=== PATIENT | male | born 1970 | race Hispanic/Latino ===

== ENCOUNTER 2016-12-24 11:32 | Emergency (ER) | payer MEDICAID, OTHER ==
[2016-12-24 11:32] VITALS: BMI 29.9
[2016-12-24 11:53] VITALS: TEMP 99.2; O2SAT 98
[2016-12-24] MEDS ORDERED: Sodium Chloride 0.9% 1,000 ML IV STA (12:13)
--- NOTE | 2016-12-24 12:28 | ED PDOC ---
Arrival/HPI - General Chief Complaint: Back Pain Time Seen by Provider: 12/24/16 11:55 Historian: Patient - History of Present Illness Narrative History of Present Illness (Text): 12/24/16 11:55 Deangelo Ochoa is a 46 year old male who presents to the emergency department complaining of right lower flank pain since yesterday. pt reports urianry urgency. Patient last normally urinated early this morning. Patient has no other complaints at this time. no fevers, n/v/d, or other complaitns. no gross hematuria. Time/Duration: 24 hours Symptom Onset: Gradual Symptom Course: Unchanged Severity Level: Mild Activities at Onset: Light Context: Home Past Medical History - Provider Review Nursing Documentation Reviewed: Yes - Infectious Disease Hx of Infectious Diseases: None - Tetanus Immunization Tetanus Immunization: Unknown - Past Medical History Past Medical History: Non-Contributing - Psychiatric Hx Depression: No Hx Emotional Abuse: No Hx Physical Abuse: No Hx Substance Use: No - Past Surgical History Past Surgical History: Non-Contributing - Suicidal Assessment Feels Threatened In Home Enviroment: No Family/Social History - Physician Review Nursing Documentation Reviewed: Yes Family/Social History: No Known Family HX Smoking Status: Never Smoked Hx Alcohol Use: Yes Hx Substance Use: No Hx Substance Use Treatment: No Allergies/Home Meds Allergies/Adverse Reactions: Allergies No Known Allergies Allergy (Verified 09/14/15 11:26) Review of Systems - Physician Review All systems were reviewed & negative as marked: Yes - Review of Systems Constitutional: absent: Fatigue Eyes: absent: Vision Changes Respiratory: absent: SOB, Cough Cardiovascular: absent: Chest Pain Gastrointestinal: absent: Abdominal Pain Genitourinary Male: absent: Dysuria Musculoskeletal: Back Pain (right sided lower flank pain) Skin: absent: Rash Neurological: absent: Headache Endocrine: absent: Diaphoresis Hemo/Lymphatic: absent: Adenopathy Psychiatric: absent: Anxiety Physical Exam Vital Signs Reviewed: Yes Vital Signs Temp Pulse Resp BP Pulse Ox 12/24/16 14:09 61 18 138/73 98 12/24/16 11:52 99.2 F 57 L 16 148/86 98 Temperature: Afebrile Blood Pressure: Normal Pulse: Bradycardic Respiratory Rate: Normal Appearance: Positive for: Well-Appearing, Non-Toxic, Comfortable Pain Distress: None Mental Status: Positive for: Alert and Oriented X 3 - Systems Exam Head: Present: Atraumatic, Normocephalic Pupils: Present: PERRL Extroacular Muscles: Present: EOMI Conjunctiva: Present: Normal Mouth: Present: Moist Mucous Membranes Neck: Present: Normal Range of Motion Respiratory/Chest: Present: Clear to Auscultation, Good Air Exchange. No: Respiratory Distress, Accessory Muscle Use Cardiovascular: Present: Regular Rate and Rhythm, Normal S1, S2. No: Murmurs Abdomen: Present: Normal Bowel Sounds. No: Tenderness, Distention, Peritoneal Signs Back: Present: Other (mild right flank tenderness) Upper Extremity: Present: Normal Inspection. No: Cyanosis, Edema Lower Extremity: Present: Normal Inspection. No: Edema Neurological: Present: GCS=15, CN II-XII Intact, Speech Normal Skin: Present: Warm, Dry, Normal Color. No: Rashes Psychiatric: Present: Alert, Oriented x 3, Normal Insight, Normal Concentration Medical Decision Making ED Course and Treatment: 12/24/16 11:55 Impression: 46 year old male complaining of right lower flank pain since yesterday and urinary frequency. bedside us shows not show acute urinary retention. Differential Diagnosis included but are not limited to: ro renal colic vs uti/pyelo Plan: -- Abdomen and Pelvis CT w/o PO contrast -- Urinalysis -- Labs -- Toradol and IV Fluids -- Reassess and disposition Prior Visits: Notes and results from previous visits were reviewed. Patient last seen in the ED on 09/14/15 for left hand abrasion and right knee pain s/p twisting right knee the day before arrival. Patient was discharged home. Progress Notes: 12/24/16 13:47 pt reassesed. pain improved ct shows 3 mm stone. no e/o of infection. pain improved. advise pt to see outpt urologist. return precautions advised. 12/24/16 15:33 - Lab Interpretations Lab Results: 12/24/16 12:20 12/24/16 12:20 Lab Results 12/24/16 12:20: Sodium 142, Potassium 3.5 L, Chloride 101, Carbon Dioxide 29, Anion Gap 16, BUN 13, Creatinine 1.1, Est GFR ( Amer) > 60, Est GFR (Non- Af Amer) > 60, Random Glucose 95, Calcium 9.9, Total Bilirubin 0.8, AST 25, ALT 25, Alkaline Phosphatase 64, Total Protein 7.7, Albumin 4.2, Globulin 3.4, Albumin/Globulin Ratio 1.2, Lipase 47 12/24/16 12:20: PT 11.4, INR 1.06, APTT 24.7 12/24/16 12:20: WBC 11.3 H, RBC 4.75, Hgb 12.5 L, Hct 37.6 L, MCV 79.2 L, MCH 26.3, MCHC 33.2, RDW 15.2 H, Plt Count 398, MPV 8.4, Gran % 85.4 H, Lymph % ( Auto) 9.4 L, [place] % (Auto) 4.9, Eos % (Auto) 0.2 L, Baso % (Auto) 0.1, Gran # 9.67 H, Lymph # 1.1 L, [place] # 0.6, Eos # 0.0, Baso # 0.01 12/24/16 12:00: Urine Color Yellow, Urine Appearance Cloudy, Urine pH 6.0, Ur Specific [place] >= 1.030, Urine Protein 100 H, Urine Glucose (UA) Negative, Urine Ketones Trace H, Urine Blood Large H, Urine Nitrate Negative, Urine Bilirubin Negative, Urine Urobilinogen 1.0 H, Ur Leukocyte Esterase Negative, Urine RBC 5 - 10, Urine WBC 2 - 5, Ur Epithelial Cells 4 - 5, Calcium Oxalate Crystal Mod, Amorphous Sediment Few, Urine Bacteria Mod I have reviewed the lab results: Yes - RAD Interpretation Radiology Orders: 12/24/16 12:13 ABD & PELVIS W/O PO OR IV CONT [CT] Stat - Medication Orders Current Medication Orders: Discontinued Medications Sodium Chloride (Sodium Chloride 0.9%) 1,000 mls @ 1,000 mls/hr IV .Q1H STA Stop: 12/24/16 13:12 Last Admin: 12/24/16 12:29 Dose: 1,000 mls/hr Ketorolac Tromethamine (Toradol) 30 mg IVP STAT STA Stop: 12/24/16 12:14 Last Admin: 12/24/16 12:29 Dose: 30 mg Ondansetron HCl (Zofran Inj) Confirm Administered Dose 4 mg .ROUTE .STK-MED ONE Stop: 12/24/16 12:40 Last Admin: 12/24/16 12:41 Dose: 4 mg - Scribe Statement The provider has reviewed the documentation as recorded by the Qingibe Mercedes Escalera Provider Scribe Attestation: All medical record entries made by the Scribe were at my direction and personally dictated by me. I have reviewed the chart and agree that the record accurately reflects my personal performance of the history, physical exam, medical decision making, and the department course for this patient. I have also personally directed, reviewed, and agree with the discharge instructions and disposition. Disposition/Present on Arrival - Present on Arrival Any Indicators Present on Arrival: No History of DVT/PE: No History of Uncontrolled Diabetes: No Urinary Catheter: No History of Decub. Ulcer: No History Surgical Site Infection Following: None - Disposition Have Diagnosis and Disposition been Completed?: Yes Diagnosis: Kidney stone Disposition: HOME/ ROUTINE Disposition Time: 13:48 Condition: STABLE Discharge Instructions (ExitCare): Kidney Stones (ED) Additional Instructions: please follow up with urologist. return to emergency room with worsening symptoms or concerns. Prescriptions: Ibuprofen [Motrin Tab] 600 mg PO Q8 PRN #20 tab PRN Reason: Pain, Mild (1-3) oxyCODONE/Acetaminophen [Percocet 5/325 mg Tab] 1 ea PO Q6 PRN #10 tab PRN Reason: Pain, Severe (8-10) Tamsulosin [Flomax] 0.4 mg PO DAILY #10 cap Referrals: PCP,NO [Primary Care Provider] - Follow up with primary Barrett Rubio MD [Staff Provider] - Follow up with primary Forms: [employer] (Persian)
[2016-12-24 12:32] LABS: BASO # 0.01 K/mm3 (0.0-2.0); BASO % 0.1 % (0.0-3.0); EOS % 0.2 % (1.5-5.0); GRAN # 9.67 (1.4-6.5); GRAN % 85.4 % (50.0-68.0); HEMOGLOBIN 12.5 gm/dL (14.0-18.0); LYMPH # 1.1 (1.2-3.4); LYMPH % 9.4 % (22.0-35.0); MEAN CELL VOLUME 79.2 fL (80.0-105.0); MEAN CORPUSCULAR HEMOGLOBIN 26.3 pg (25.0-35.0); MEAN CORPUSCULAR HGB CONC 33.2 g/dl (31.0-37.0); MEAN PLATELET VOLUME 8.4 fl (7.0-11.0); MONO # 0.6 (0.1-0.6); MONO % 4.9 % (1.0-6.0); PLATELET COUNT 398 10^3/uL (120.0-450.0); RBC 4.75 10^6/uL (3.5-6.1); RED CELL DISTRIBUTION WIDTH 15.2 % (11.5-14.5); WHITE BLOOD COUNT 11.3 10^3/ul (4.5-11.0)
[2016-12-24 12:32] LABS: URINE BILIRUBIN NEGATIVE (NEGATIVE); URINE BLOOD LARGE (NEGATIVE); URINE GLUCOSE (UA) NEGATIVE (NEGATIVE); URINE LEUKOCYTE ESTERASE NEGATIVE Leu/uL (NEGATIVE); URINE NITRATE NEGATIVE (NEGATIVE); URINE PROTEIN 100 mg/dL (<30 mg/dL)
[2016-12-24 12:35] LABS: URINE APPEARANCE CLOUDY (CLEAR); URINE COLOR YELLOW (YELLOW)
[2016-12-24 12:41] LABS: ALB/GLOB RATIO 1.2 (1.1-1.8); ALBUMIN 4.2 g/dL (3.0-4.8); ALT/SGPT 25 U/L (7-56); AST/SGOT 25 U/L (15-59); BLOOD UREA NITROGEN 13 mg/dL (7-21); CALCIUM 9.9 mg/dL (8.4-10.5); GFR AFRICAN-AMERICAN > 60; GFR NON-AFRICAN AMERICAN > 60; LIPASE 47 U/L (23-300)
[2016-12-24 12:42] LABS: INR 1.06 (0.93-1.08); PARTIAL THROMBOPLASTIN TIME 24.7 Seconds (23.7-30.8); PROTHROMBIN TIME 11.4 Seconds (9.9-11.8)
[2016-12-24 12:54] LABS: URINE CALCIUM OXALATE CRYSTALS MOD /hpf
[2016-12-24 12:55] LABS: URINE AMORPHOUS SEDIMENT FEW; URINE BACTERIA MOD (NEG)
--- NOTE | 2016-12-24 13:43 | CT ---
PROCEDURE: CT Abdomen and Pelvis without intravenous contrast HISTORY: Right flank pain COMPARISON: None. TECHNIQUE: CT scan of the abdomen and pelvis was performed without administration of intravenous contrast. Oral contrast was not administered. Coronal and sagittal reformatted images were obtained. Radiation dose: Total exam DLP = 430.38 mGy-cm. This CT exam was performed using one or more of the following dose reduction techniques: Automated exposure control, adjustment of the mA and/or kV according to patient size, and/or use of iterative reconstruction technique. FINDINGS: LOWER THORAX: The lung bases are clear. LIVER: The liver is normal in size. No gross lesion or ductal dilatation. GALLBLADDER AND BILE DUCTS: There are no calcified gallstones. PANCREAS: The pancreas is normal in size. No gross lesion or ductal dilatation. SPLEEN: The spleen is normal in size. ADRENALS: Both adrenal glands are normal in size without discrete nodule. KIDNEYS AND URETERS: There is a 3 mm obstructing stone at the right UV junction with resultant mild diffuse dilatation of the right ureteral, mild hydronephrosis and right perinephric fat stranding. There are small nonobstructing stones in both kidneys. There is no left hydronephrosis or obstructive uropathy. VASCULATURE: No aortic aneurysm. BOWEL: The small bowel loops are normal in caliber. There is large amount of stool scattered throughout the colon. There is no bowel dilatation or obstruction. APPENDIX: No inflammatory changes in the right lower quadrant, the appendix is not distinctly identified. PERITONEUM: No free fluid. No free air. LYMPH NODES: No enlarged lymph nodes. BLADDER: Partially decompressed. REPRODUCTIVE: Unremarkable. BONES: No acute fracture. OTHER FINDINGS: There are bilateral small fat containing inguinal hernias. There is a moderate sliding hiatal hernia. IMPRESSION: 1. Mild right obstructive uropathy resulting from a 3 mm stone at the right UV junction. 2. Small nonobstructing stones in both kidneys. 3. Constipation. No evidence of bowel obstruction.
[2016-12-24 14:10] VITALS: BP 138/73; PULSE 61; RESP 18
== END 2016-12-24 14:10 | disposition home or self-care (01) ==
LOC: ED 11:32
DX: N20.0 Calculus of kidney (principal)
CPT/HCPCS: 74176; 80053; 81001; 83690; 85025; 85610; 85730; 96374; 99283; J1885; J2405; J7040

== ENCOUNTER 2017-09-27 09:20 | Emergency (ER) | payer MEDICAID ==
[2017-09-27 09:23] VITALS: BMI 29.9
[2017-09-27 09:34] VITALS: TEMP 99
[2017-09-27] MEDS ORDERED: Phenylephrine for priapism 0.1 mg/mL Syringe IN-CAVERNO STA ×2 (09:49→10:08)
--- NOTE | 2017-09-27 09:50 | ED PDOC ---
Arrival/HPI - General Chief Complaint: Male Genitourinary Time Seen by Provider: 09/27/17 09:31 Historian: Patient - History of Present Illness Narrative History of Present Illness (Text): 09/27/17 09:46 47yo male with PMHx of Insomnia present with complaint of persistent erection since yesterday morning. He states erection started after taking unknown medication for insomnia. States it was given at [facility] few days ago. He denies pain, but states it feels uncomfortable when walking. He denies penile discharge , urinary symptoms, any other complaint. Past Medical History - Provider Review Nursing Documentation Reviewed: Yes - Infectious Disease Hx of Infectious Diseases: None - Tetanus Immunization Tetanus Immunization: Unknown - Past Medical History Past Medical History: Non-Contributing - Cardiac Hx Hypertension: No - Pulmonary Hx Tuberculosis: No - Neurological Hx Seizures: No - Hematological/Oncological Hx Cancer: No - Musculoskeletal/Rheumatological Hx Falls: No - Genitourinary/Gynecological Hx Sexually Transmitted Diseases: No - Psychiatric Hx Psychophysiologic Disorder: Yes Hx Depression: Yes Hx Substance Use: Yes (PERCOCET) - Past Surgical History Past Surgical History: Non-Contributing - Anesthesia Hx Anesthesia: No - Suicidal Assessment Feels Threatened In Home Enviroment: No Family/Social History - Physician Review Nursing Documentation Reviewed: Yes Family/Social History: Unknown Family HX Smoking Status: Never Smoked Hx Alcohol Use: Yes (Beer) Frequency of alcohol use: Daily Hx Substance Use: Yes (PERCOCET) Substance used: Percocet Hx Substance Use Treatment: No Allergies/Home Meds Allergies/Adverse Reactions: Allergies No Known Allergies Allergy (Verified 09/27/17 09:28) Home Medications: Home Meds Medication Instructions Recorded Confirmed Unobtainable 09/27/17 09/27/17 Review of Systems - Physician Review All systems were reviewed & negative as marked: Yes - Review of Systems Constitutional: Normal Eyes: Normal ENT: Normal Respiratory: Normal Cardiovascular: Normal Gastrointestinal: Normal Genitourinary Male: Other (Penile erection) Musculoskeletal: Normal Skin: Normal Neurological: Normal Endocrine: Normal Hemo/Lymphatic: Normal Psychiatric: Normal Physical Exam Vital Signs Reviewed: Yes Vital Signs Temp Pulse Resp BP Pulse Ox 09/27/17 11:14 74 17 113/76 99 09/27/17 09:29 99.0 F 101 H 16 101/65 96 Temperature: Afebrile Blood Pressure: Normal Pulse: Regular Respiratory Rate: Normal Appearance: Positive for: Well-Appearing, Non-Toxic, Comfortable Pain Distress: None Mental Status: Positive for: Alert and Oriented X 3 - Systems Exam Head: Present: Atraumatic, Normocephalic Pupils: Present: PERRL Extroacular Muscles: Present: EOMI Conjunctiva: Present: Normal Mouth: Present: Moist Mucous Membranes Neck: Present: Normal Range of Motion Respiratory/Chest: Present: Clear to Auscultation, Good Air Exchange. No: Respiratory Distress, Accessory Muscle Use Cardiovascular: Present: Regular Rate and Rhythm, Normal S1, S2. No: Murmurs Abdomen: No: Tenderness, Distention, Peritoneal Signs Genitourinary Male: Present: Other (Erected penis noted) Back: Present: Normal Inspection Upper Extremity: Present: Normal Inspection. No: Cyanosis, Edema Lower Extremity: Present: Normal Inspection. No: Edema Neurological: Present: GCS=15, CN II-XII Intact, Speech Normal Skin: Present: Warm, Dry, Normal Color. No: Rashes Psychiatric: Present: Alert, Oriented x 3, Normal Insight, Normal Concentration Medical Decision Making ED Course and Treatment: 09/27/17 10:30 47yo male in ED for present erection over 24hrs Case was DW Dr. Leslie acevedo. He spoke with Dr. Thompson and recommended he used phenylepeneprhine to relieved erection and request a call back. PT remain comfortable in ED. 09/27/17 12:30 pt was injected with 2doses of 0.1mg of phenylepinephrine without resolution. Dr. Thompson spoke with Dr. Acevedo and he request that pt be DC to come to his office. Dr. Thompson discussed this with the patient and he agreed with the plan to follow up with Dr. Acevedo's office as soon as he leaves the ED. He was comfortbale and in no distress. No sign of ischemia was noted in ED. - Medication Orders Current Medication Orders: Discontinued Medications Phenylephrine HCl (Phenylephrine For Priapism) 0.1 mg IN-CAVER[place] STAT STA Stop: 09/27/17 09:50 Phenylephrine HCl (Phenylephrine For Priapism) 0.1 mg IN-[place]VER[place] STAT STA Stop: 09/27/17 10:09 Disposition/Present on Arrival - Present on Arrival Any Indicators Present on Arrival: No History of DVT/PE: No History of Uncontrolled Diabetes: No Urinary Catheter: No History of Decub. Ulcer: No History Surgical Site Infection Following: None - Disposition Have Diagnosis and Disposition been Completed?: Yes Diagnosis: Priapism Disposition: HOME/ ROUTINE Disposition Time: 12:30 Patient Plan: Discharge Patient Problems: Current Active Problems Problem Status Onset Priapism Acute Condition: STABLE Discharge Instructions (ExitCare): Priapism Additional Instructions: Follow up with Urologist, Dr. Leslie Acevedo now Return to ED for persistent symptom Referrals: Leslie Acevedo MD [Staff Provider] - Follow up with primary Forms: [employer] (North Korean)
[2017-09-27 11:16] VITALS: RESP 17
[2017-09-27 14:31] VITALS: BP 115/80; PULSE 70; O2SAT 100
== END 2017-09-27 12:45 | disposition home or self-care (01) ==
LOC: ED 09:20
DX: N48.30 Priapism, unspecified (principal)

== ENCOUNTER 2018-01-13 23:37 | Emergency (ER) | payer SELFPAY ==
[2018-01-13 23:37] VITALS: BMI 29.9
[2018-01-14 00:32] VITALS: BP 137/57; PULSE 90; RESP 18; TEMP 97.9; O2SAT 96
--- NOTE | 2018-01-14 00:37 | ED PDOC ---
Arrival/HPI - General Chief Complaint: Alcohol Ingestion Time Seen by Provider: 01/14/18 00:28 Historian: Patient, Family (sister) - History of Present Illness Narrative History of Present Illness (Text): 01/14/18 00:30 A 48 year old male, whose past medical history includes EtOH/substance abuse, is brought in by EMS into the emergency department for public intoxication. Patient admits to drinking 12 beers this evening. Denies any fall/trauma. Patient is not experiencing any withdrawal symptoms at this time. No nausea, vomiting, diarrhea. Patient's sister is present here in the ER, who will be taking patient under her care. No PMD Past Medical History - Provider Review Nursing Documentation Reviewed: Yes - Infectious Disease Hx of Infectious Diseases: None - Tetanus Immunization Tetanus Immunization: Unknown - Past Medical History Past Medical History: Non-Contributing - Cardiac Hx Hypertension: No - Pulmonary Hx Tuberculosis: No - Neurological Hx Seizures: No - Hematological/Oncological Hx Cancer: No - Musculoskeletal/Rheumatological Hx Falls: No - Genitourinary/Gynecological Hx Sexually Transmitted Diseases: No - Psychiatric Hx Psychophysiologic Disorder: Yes Hx Depression: Yes Hx Substance Use: Yes (PERCOCET) - Past Surgical History Past Surgical History: Non-Contributing - Anesthesia Hx Anesthesia: No - Suicidal Assessment Feels Threatened In Home Enviroment: No Family/Social History - Physician Review Nursing Documentation Reviewed: Yes Family/Social History: No Known Family HX Smoking Status: Never Smoked Hx Alcohol Use: Yes (Beer) Hx Substance Use: Yes (PERCOCET) Substance used: Percocet Hx Substance Use Treatment: No Allergies/Home Meds Allergies/Adverse Reactions: Allergies No Known Allergies Allergy (Verified 09/27/17 09:28) Home Medications: Home Meds Medication Instructions Recorded Confirmed Unobtainable 09/27/17 01/13/18 Review of Systems - Review of Systems Constitutional: Normal Eyes: Normal ENT: Normal Respiratory: Normal Cardiovascular: Normal Gastrointestinal: Normal. absent: Diarrhea, Nausea, Vomiting Genitourinary Male: Normal Musculoskeletal: Normal Skin: Normal Neurological: Normal Endocrine: Normal Hemo/Lymphatic: Normal Psychiatric: Other (intoxicated) Physical Exam Vital Signs Reviewed: Yes Vital Signs Temp Pulse Resp BP Pulse Ox 01/14/18 00:31 97.9 F 90 18 137/57 L 96 Temperature: Afebrile Blood Pressure: Normal Pulse: Regular Respiratory Rate: Normal Appearance: Positive for: Other (intoxicated) Pain Distress: None Mental Status: Positive for: other (intoxicated) - Systems Exam Head: Present: Atraumatic, Normocephalic Pupils: Present: PERRL Extroacular Muscles: Present: EOMI Conjunctiva: Present: Normal Mouth: Present: Moist Mucous Membranes Neck: Present: Normal Range of Motion Respiratory/Chest: Present: Clear to Auscultation, Good Air Exchange. No: Respiratory Distress, Accessory Muscle Use Cardiovascular: Present: Regular Rate and Rhythm, Normal S1, S2. No: Murmurs Abdomen: No: Tenderness, Distention, Peritoneal Signs Back: Present: Normal Inspection Upper Extremity: Present: Normal Inspection. No: Cyanosis, Edema Lower Extremity: Present: Normal Inspection. No: Edema Neurological: Present: GCS=15, CN II-XII Intact, Speech Normal Skin: Present: Warm, Dry, Normal Color. No: Rashes Psychiatric: Present: Intoxicated Medical Decision Making ED Course and Treatment: 01/14/18 00:31 Impression: 48 year old male with intoxication. No acute findings on physical exam except patient is intoxicated. Will be taken home by his sister. Plan: -- Reassess and disposition Progress Notes: Picked up by sister, who will assume care of the patient at home. - Scribe Statement The provider has reviewed the documentation as recorded by the Myra Antoine Provider Scribe Attestation: All medical record entries made by the Scribe were at my direction and personally dictated by me. I have reviewed the chart and agree that the record accurately reflects my personal performance of the history, physical exam, medical decision making, and the department course for this patient. I have also personally directed, reviewed, and agree with the discharge instructions and disposition. Disposition/Present on Arrival - Present on Arrival Any Indicators Present on Arrival: No History of DVT/PE: No History of Uncontrolled Diabetes: No Urinary Catheter: No History of Decub. Ulcer: No History Surgical Site Infection Following: None - Disposition Have Diagnosis and Disposition been Completed?: Yes Diagnosis: Alcohol intoxication Disposition: HOME/ ROUTINE Disposition Time: 00:32 Condition: GOOD Discharge Instructions (ExitCare): Alcohol Abuse and Alcoholism (DC) Additional Instructions: TAY JUAREZ, thank you for letting us take care of you today. Your provider was Piyush Dorantes and you were treated for ETOH. The emergency medical care you received today was directed at your acute symptoms. If you were prescribed any medication, please fill it and take as directed. It may take several days for your symptoms to resolve. Return to the Emergency Department if your symptoms worsen, do not improve, or if you have any other problems. Please contact your doctor or call one of the physicians/clinics you have been referred to that are listed on the Patient Visit Information form that is included in your discharge packet. Bring any paperwork you were given at discharge with you along with any medications you are taking to your follow up visit. Our treatment cannot replace ongoing medical care by a primary care provider outside of the emergency department. Thank you for allowing the [facility] team to be part of your care today. If you had an X-Ray or CT scan: A Radiologist will review the ED reading if any change in treatment is needed we will contact you. If you had a blood, urine, or wound culture: It will take several days for the results, if any change in treatment is needed we will contact you. If you had an STI test: It will take 48 hours for the results. Please call after 1 week if you have not heard back. Referrals: FAMILY PROVIDER,NO [Primary Care Provider] - Follow up with primary Idalmis Jimenez MD [Medical Doctor] - Follow up with primary Forms: [employer] (Maltese)
== END 2018-01-14 00:40 | disposition home or self-care (01) ==
LOC: ED 23:37
DX: F10.129 Alcohol abuse with intoxication, unspecified (principal)

== ENCOUNTER 2018-04-08 17:49 | Emergency (ER) | payer MEDICAID ==
[2018-04-08 17:51] VITALS: BMI 29.9
--- NOTE | 2018-04-08 19:32 | ED PDOC ---
Arrival/HPI <Brian Feldman - Last Filed: 04/08/18 20:02> - General Historian: Patient - History of Present Illness Narrative History of Present Illness (Text): 04/08/18 18:45 A 48 year old male, whose past medical history includes EtOH/substance abuse, presents to the emergency department complaining of alcohol intoxication. Patient admits to drinking alcohol. Patient denies any injuries, trauma, fever, headache, shortness of breath, vomiting, any pain, or any other complaints at this time. No PMD <Lenka Leiva PA-C - Last Filed: 04/08/18 21:57> - General Chief Complaint: Alcohol Ingestion Time Seen by Provider: 04/08/18 18:31 Past Medical History - Provider Review Nursing Documentation Reviewed: Yes - Infectious Disease Hx of Infectious Diseases: None - Tetanus Immunization Tetanus Immunization: Unknown - Past Medical History Past Medical History: Non-Contributing - Cardiac Hx Hypertension: No - Pulmonary Hx Tuberculosis: No - Neurological Hx Seizures: No - Hematological/Oncological Hx Cancer: No - Musculoskeletal/Rheumatological Hx Falls: No - Genitourinary/Gynecological Hx Sexually Transmitted Diseases: No - Psychiatric Hx Psychophysiologic Disorder: Yes Hx Depression: Yes Hx Substance Use: Yes (PERCOCET) - Past Surgical History Past Surgical History: Non-Contributing - Anesthesia Hx Anesthesia: No - Suicidal Assessment Feels Threatened In Home Enviroment: No <Lenka Leiva PA-C - Last Filed: 04/08/18 21:57> Family/Social History - Physician Review Nursing Documentation Reviewed: Yes Family/Social History: No Known Family HX Smoking Status: Never Smoked Hx Alcohol Use: Yes (Beer) Frequency of alcohol use: Daily Hx Substance Use: Yes (PERCOCET) Substance used: Percocet Hx Substance Use Treatment: No <Lenka Leiva PA-C - Last Filed: 04/08/18 21:57> Allergies/Home Meds <Brian Feldman - Last Filed: 04/08/18 20:02> <Lenka Leiva PA-C - Last Filed: 04/08/18 21:57> Allergies/Adverse Reactions: Allergies No Known Allergies Allergy (Verified 04/08/18 17:50) Home Medications: Home Meds Medication Instructions Recorded Confirmed No Known Home Med 01/29/18 04/08/18 Review of Systems - Physician Review All systems were reviewed & negative as marked: Yes - Review of Systems Constitutional: absent: Fevers, Other (no injuries/trauma) Respiratory: absent: SOB Cardiovascular: absent: Chest Pain Gastrointestinal: absent: Abdominal Pain, Vomiting Neurological: absent: Headache <Lenka Leiva PA-C - Last Filed: 04/08/18 21:57> Physical Exam Vital Signs Temp Pulse Resp BP Pulse Ox 04/08/18 18:13 97.5 F L 90 17 100/84 98 <Brian Feldman - Last Filed: 04/08/18 20:02> Vital Signs Reviewed: Yes Vital Signs Temp Pulse Resp BP Pulse Ox 04/08/18 18:13 97.5 F L 90 17 100/84 98 Temperature: Afebrile Blood Pressure: Normal Pulse: Regular Respiratory Rate: Normal Appearance: Positive for: Other (intoxicated, alcohol on breath) Pain Distress: None Mental Status: Positive for: Alert and Oriented X 3 Finger Stick Blood Glucose: 59 - Systems Exam Head: Present: Atraumatic, Normocephalic Pupils: Present: PERRL Extroacular Muscles: Present: EOMI Conjunctiva: Present: Normal Mouth: Present: Moist Mucous Membranes Neck: Present: Normal Range of Motion Respiratory/Chest: Present: Clear to Auscultation, Good Air Exchange. No: Respiratory Distress, Accessory Muscle Use Cardiovascular: Present: Regular Rate and Rhythm, Normal S1, S2. No: Murmurs Abdomen: No: Tenderness, Distention, Peritoneal Signs Back: Present: Normal Inspection Upper Extremity: Present: Normal Inspection. No: Cyanosis, Edema Lower Extremity: Present: Normal Inspection. No: Edema Neurological: Present: GCS=15, CN II-XII Intact, Speech Normal Skin: Present: Warm, Dry, Normal Color. No: Rashes Psychiatric: Present: Alert, Oriented x 3, Normal Insight, Normal Concentration <Lenka Leiva PA-C - Last Filed: 04/08/18 21:57> Medical Decision Making - Lab Interpretations Lab Results: Lab Results 04/08/18 18:08: POC Glucose (mg/dL) 59 L <Brian Feldman - Last Filed: 04/08/18 20:02> ED Course and Treatment: 04/08/18 18:47 Impression: 48 year old male with intoxication. Plan: -- Fingerstick -- Labs -- Reassess and disposition Prior Visits: Notes and results from previous visits were reviewed. Patient was last seen here in the emergency department on 01/29/2018 for public intoxication. Patient was discharged home. Progress Notes: 04/08/18 19:00 Patient's fingerstick is 59. Patient was given two juices, sandwich wrap, and applesauce. Patient will remain under observation until patient reaches sobriety. 04/08/18 20:30 FS 91. Patient remains AAOx3 in no acute distress, given cereal, milk and a large cookie to eat. 04/08/18 21:52 On re-evaluation, patient is more AA and still Ox3, in no acute distress. States that he wants to go home and that he feels much better. Patient speaking in full sentences, no slurred speech, no tremors, ambulatory with a steady gait, repeat neuro exam shows no focal findings. FS 77. Given another 2 cookies to eat and juice to drink. Advised that he must eat when he gets home. Patient is safe for discharge. Patient instructed to follow-up with the clinic in 1-2 days without fail. Return to the emergency room at any time for any new or worsening symptoms. Patient states he fully agrees with and understands discharge instructions. States that he agrees with the plan and disposition. Verbalized and repeated discharge instructions and plan. I have given the patient opportunity to ask any additional questions. - Lab Interpretations Lab Results: Lab Results 04/08/18 18:08: POC Glucose (mg/dL) 59 L <Lenka Leiva PA-C - Last Filed: 04/08/18 21:57> - PA / METALLURGICAL LABORATORY ASSISTANT / Resident Statement CHIKA has reviewed & agrees with the documentation as recorded. <Brian Feldman - Last Filed: 04/08/18 20:02> - PA / METALLURGICAL LABORATORY ASSISTANT / Resident Statement CHIKA has reviewed & agrees with the documentation as recorded. - Scribe Statement The provider has reviewed the documentation as recorded by the Myra Antoine Provider Scribe Attestation: All medical record entries made by the Scribe were at my direction and personally dictated by me. I have reviewed the chart and agree that the record accurately reflects my personal performance of the history, physical exam, medical decision making, and the department course for this patient. I have also personally directed, reviewed, and agree with the discharge instructions and disposition. <Lenka Leiva PA-C - Last Filed: 04/08/18 21:57> Disposition/Present on Arrival <Brian Feldman - Last Filed: 04/08/18 20:02> - Present on Arrival Any Indicators Present on Arrival: No History of DVT/PE: No History of Uncontrolled Diabetes: No Urinary Catheter: No History of Decub. Ulcer: No History Surgical Site Infection Following: None - Disposition Have Diagnosis and Disposition been Completed?: Yes Disposition Time: 22:00 Patient Plan: Discharge <Lenka Leiva PA-C - Last Filed: 04/08/18 21:57> - Disposition Diagnosis: Alcohol intoxication, Hypoglycemia Disposition: HOME/ ROUTINE Condition: STABLE Discharge Instructions (ExitCare): Low Blood Sugar, Adult (DC), Alcohol Abuse and Alcoholism (DC) Additional Instructions: Thank you for letting us take care of you today. You were treated for alcohol intoxication and hypoglycemia. The emergency medical care you received today was directed at your acute symptoms. Please eat a large meal once you get home to keep your sugar up and eat a snack prior to going to bed. Return to the Emergency Department if your symptoms worsen, do not improve, or if you have any other problems. Please contact your doctor in 2 days for re-evaluation and follow up / or call one of the physicians/clinics you have been referred to that are listed on the Patient Visit Information form that is included in your discharge packet. Bring any paperwork you were given at discharge with you along with any medications you are taking to your follow up visit. Our treatment cannot replace ongoing medical care by a primary care provider (PCP) outside of the emergency department. [facility]. Referrals: PCP,NO [Primary Care Provider] - [place] [facility] [place] [facility] [place] - Follow up with primary Forms: [employer] ([place]ux[place])
[2018-04-08 22:00] VITALS: BP 121/77; PULSE 76; RESP 18; TEMP 97.8; O2SAT 96
--- NOTE | 2018-04-09 08:58 | CARD ---
APPROVED REPORT Date of service: 04/08/2018 EKG Measurement Heart [id number] <Conclusion> Sinus bradycardia with marked sinus arrhythmia Incomplete RBBB Borderline ECG
== END 2018-04-08 22:09 | disposition home or self-care (01) ==
LOC: ED 17:49
DX: F10.129 Alcohol abuse with intoxication, unspecified (principal); E16.2 Hypoglycemia, unspecified

== ENCOUNTER 2018-04-23 23:02 | Emergency (ER) | payer MEDICAID ==
[2018-04-24 00:16] VITALS: BMI 27.3
--- NOTE | 2018-04-24 00:52 | ED PDOC ---
Arrival/HPI - General Chief Complaint: Shortness Of Breath Time Seen by Provider: 04/24/18 00:23 Historian: Patient - History of Present Illness Narrative History of Present Illness (Text): 04/24/18 00:52 Deangelo Ochoa is a 48 year old male, whose past medical history includes alcohol abuse and depression, who presents to the Emergency department complaining of cough. Patient states he has been experiencing occasional cough for the past few days. Patient denies any alcohol consumption tonight. Patient denies any fever, chills, chest pain, shortness of breath, nausea, vomiting, headache, dizziness, or any other complaints. Symptom Onset: Gradual Symptom Course: Unchanged Activities at Onset: Light Context: Home Past Medical History - Provider Review Nursing Documentation Reviewed: Yes - Infectious Disease Hx of Infectious Diseases: None - Tetanus Immunization Tetanus Immunization: Unknown - Past Medical History Past Medical History: Non-Contributing - Cardiac Hx Hypertension: No - Pulmonary Hx Tuberculosis: No - Neurological Hx Seizures: No - Hematological/Oncological Hx Cancer: No - Musculoskeletal/Rheumatological Hx Falls: No - Genitourinary/Gynecological Hx Sexually Transmitted Diseases: No - Psychiatric Hx Depression: Yes Hx Substance Use: Yes (PERCOCET) - Past Surgical History Past Surgical History: Non-Contributing - Anesthesia Hx Anesthesia: No - Suicidal Assessment Feels Threatened In Home Enviroment: No Family/Social History - Physician Review Nursing Documentation Reviewed: Yes Family/Social History: Unknown Family HX Smoking Status: Never Smoked Hx Alcohol Use: Yes (Beer) Hx Substance Use: Yes (PERCOCET) Substance used: Percocet Hx Substance Use Treatment: No Allergies/Home Meds Allergies/Adverse Reactions: Allergies No Known Allergies Allergy (Verified 04/24/18 00:16) Review of Systems - Physician Review All systems were reviewed & negative as marked: Yes - Review of Systems Constitutional: Normal. absent: Fevers Eyes: Normal ENT: Normal Respiratory: Cough Cardiovascular: Normal. absent: Chest Pain Gastrointestinal: Normal. absent: Abdominal Pain, Diarrhea, Nausea, Vomiting Genitourinary Male: Normal. absent: Dysuria, Frequency, Hematuria, Urinary Output Changes Musculoskeletal: Normal. absent: Back Pain, Neck Pain Skin: Normal. absent: Rash Neurological: Normal. absent: Headache, Dizziness Endocrine: Normal Hemo/Lymphatic: Normal Psychiatric: Normal Physical Exam Vital Signs Reviewed: Yes Temperature: Afebrile Blood Pressure: Normal Pulse: Regular Respiratory Rate: Normal Appearance: Positive for: Well-Appearing, Non-Toxic, Comfortable Pain Distress: None Mental Status: Positive for: Alert and Oriented X 3 - Systems Exam Head: Present: Atraumatic, Normocephalic Pupils: Present: PERRL Extroacular Muscles: Present: EOMI Conjunctiva: Present: Normal Mouth: Present: Moist Mucous Membranes Neck: Present: Normal Range of Motion Respiratory/Chest: Present: Clear to Auscultation, Good Air Exchange. No: Respiratory Distress, Accessory Muscle Use Cardiovascular: Present: Regular Rate and Rhythm, Normal S1, S2. No: Murmurs Abdomen: No: Tenderness, Distention, Peritoneal Signs Back: Present: Normal Inspection Upper Extremity: Present: Normal Inspection. No: Cyanosis, Edema Lower Extremity: Present: Normal Inspection. No: Edema Neurological: Present: GCS=15, CN II-XII Intact, Speech Normal Skin: Present: Warm, Dry, Normal Color. No: Rashes Psychiatric: Present: Alert, Oriented x 3, Normal Insight, Normal Concentration Medical Decision Making ED Course and Treatment: 04/24/18 00:52 Impression: 48 year old male complaining of occasional cough for the past few days. Plan: -- CXR -- Reassess and disposition Prior Visits: Notes and results from previous visits were reviewed. Progress Notes: 04/24/18 01:38 Chest X-ray reviewed, shows no acute processes. - RAD Interpretation Plaster Block Layer: ED Physician - Scribe Statement The provider has reviewed the documentation as recorded by the Myra Lara Provider Scribe Attestation: All medical record entries made by the Qingibdilma were at my direction and personally dictated by me. I have reviewed the chart and agree that the record accurately reflects my personal performance of the history, physical exam, medical decision making, and the department course for this patient. I have also personally directed, reviewed, and agree with the discharge instructions and disposition. Disposition/Present on Arrival - Present on Arrival Any Indicators Present on Arrival: No History of DVT/PE: No History of Uncontrolled Diabetes: No Urinary Catheter: No History of Decub. Ulcer: No History Surgical Site Infection Following: None - Disposition Have Diagnosis and Disposition been Completed?: Yes Diagnosis: Bronchitis Disposition: HOME/ ROUTINE Disposition Time: 01:41 Patient Plan: Discharge Condition: GOOD Discharge Instructions (ExitCare): Acute Bronchitis, Adult (DC) Additional Instructions: take meds as prescribed/follow up with your doctor this week Prescriptions: Azithromycin [Zithromax] 250 mg PO DAILY #6 tab Forms: [employer] (Greek)
[2018-04-24 05:31] VITALS: BP 126/72; PULSE 18; RESP 18; O2SAT 98
[2018-04-24 05:32] VITALS: TEMP 97.9
--- NOTE | 2018-04-24 09:11 | RAD ---
Date of service: 04/24/2018 HISTORY: cough COMPARISON: No prior. TECHNIQUE: Chest PA and lateral FINDINGS: LUNGS: No active pulmonary disease. PLEURA: No significant pleural effusion identified. No pneumothorax apparent. CARDIOVASCULAR: No aortic atherosclerotic calcification present. Normal cardiac size. No pulmonary vascular congestion. OSSEOUS STRUCTURES: No significant abnormalities. VISUALIZED UPPER ABDOMEN: Normal. OTHER FINDINGS: None. IMPRESSION: No active disease.
== END 2018-04-24 01:55 | disposition home or self-care (01) ==
LOC: ED 23:02
DX: J40 Bronchitis, not specified as acute or chronic (principal)